=== PATIENT | male | born 1955 ===

== ENCOUNTER → 2020-08-21 | Outpatient (CLI) | payer OTHER ==
[~2020-08-21] MED LIST: AMLODIPINE BESY10 MG
== END | disposition home or self-care (01) ==
LOC: LAB 10:00
PROVIDERS: ATTEND Urology
DX: R97.20 Elevated prostate specific antigen [PSA] (principal); E11.9 Type 2 diabetes mellitus without complications; N39.0 Urinary tract infection, site not specified

== ENCOUNTER 2021-04-11 11:08 | Outpatient (CLI) | payer OTHER | END 2021-04-11 11:27 | disposition home or self-care (01) | LOC: TOM 11:08 | PROVIDERS: ATTEND Internal Medicine Pulmonary Disease | DX: I10 Essential (primary) hypertension (principal); K80.80 Other cholelithiasis without obstruction; Q61.01 Congenital single renal cyst; K76.0 Fatty (change of) liver, not elsewhere classified ==

== ENCOUNTER 2024-04-03 11:34 | Outpatient (CLI) | payer OTHER | END 2024-04-03 11:40 | disposition home or self-care (01) | LOC: SONOGRAMA 11:34 | PROVIDERS: ATTEND Internal Medicine Cardiovascular Disease | DX: E04.2 Nontoxic multinodular goiter (principal) ==